=== PATIENT | female | born 2005 | race Caucasian/White ===

== ENCOUNTER 2025-09-24 18:32 | Emergency (ER) | payer SELFPAY ==
[2025-09-24 18:32] VITALS: BMI 21.5
[2025-09-24 18:34] VITALS: BP 114/78
--- NOTE | 2025-09-24 19:13 | ED.GENMED ---
History of Present Illness
General
Chief Complaint: Rabies
Source: patient
Exam Limitations: none
Time Seen by Provider: 09/24/25 19:03
Nursing documentation reviewed up to this point in time: agreed with
History of Present Illness
History of Present Illness:
20-year-old female presenting to the emergency department today after being bit by a barn cat. She works at a vet clinic. The cat is not vaccinated she denies any history of vaccination. Her last tetanus shot was a few years ago. She claims that
she cleaned the area immediately and irrigated the superficial wound.
Review of Systems
Review of Systems
Allergies reviewed?: Yes
All Other Systems: ROS reviewed and negative except as documented in HPI and ROS
Phy Exam
Physical Exam
Physical Exam:
GENERAL: Alert , in no apparent distress
EYE: pupils equal and reactive
NECK: Supple, no significant adenopathy.
ENT: o/p clr, mmm.
CARDIAC: Regular rate and rhythm .
LUNGS: Clear breath sounds bilaterally, no acute respiratory distress, no wheezes/rales/rhonchi
ABDOMEN: Soft, without focal tenderness, no r/g, no cvat
NEUROLOGICAL: Alert and oriented, no focal neuro deficits
SKIN: Very superficial cut to the right palm are fourth MCP. Warm and dry, skin intact.
MUSCULOSKELETAL: No edema, well perfused.
PSYCH: Normal and appropriate interaction.
Course
Orders/Labs/Results
Orders:
Orders
09/24/25 19:13
Amoxicillin 875 mg/Clav 125 mg [Augmentin 875 mg/125 mg] 1 tablet PO NOW STA
Rabies Immune Globulin/Pf [HyperRAB] 1,243 unit IM NOW STA
Rabies Vaccine (Pcec)/Pf [Rabavert Rabies Vacc W-Diluent] 2.5 unit IM .ONCE ONE
Vital Signs
Initial and Last Documented VS:
Initial Vital Signs
Temp Pulse Resp BP Pulse Ox
98.2 F 74 16 114/78 99
09/24/25 18:34 09/24/25 18:34 09/24/25 18:34 09/24/25 18:34 09/24/25 18:34
Last Documented Vital Signs
Temp Pulse Resp BP Pulse Ox
98.2 F 74 16 114/78 99
09/24/25 18:34 09/24/25 18:34 09/24/25 18:34 09/24/25 18:34 09/24/25 18:34
MDM/Problems Addressed
MDM/Problems Addressed:
20-year-old female presenting to the emergency department after being bit by a kitten that apparently does live outdoor not vaccinated there was acting strange today. Concerning this patient is seeking rabies vaccination. Additionally started on
antibiotics. Was given immunoglobulin as well as the vaccine and given a prescription for subsequent series. Return precautions given.
*Pulse Oximetry
SaO2: 99
Oxygen Mode of Delivery: Room air
Patient hypoxic: no (99)
*Critical Care Note
Total Time (30-74mins, 75-104mins- exclusive of procedures): Not Applicable
ED Attending Note
-
Portions of this chart may have been created with voice recognition software.� Occasional wrong word or��sound alike� substitutions may have occurred due to the inherent limitations of voice recognition software.
Discharge Plan
Departure
Patient Disposition: Home (Routine Discharge)
Date of Disposition: 09/24/25
Time of Disposition: 19:17
Patient with high blood pressure during this ER visit?: No
Condition: Good
Covid-19: Not Applicable
Discharge Problem:
Cat bite
Instructions: Rabies
Prescriptions:
New
RabAvert (PF) 2.5 unit Suspension For Reconstitution
1 ml IM . DIRECTED Qty: 3 0RF
Rx Instructions:
See Rabies Vaccine Post Exposure Prophylaxis Instruction Sheet for Dosing Instructions
amoxicillin-pot clavulanate 875-125 mg tablet
1 tab PO BID 3 Days Qty: 6 0RF
Stand Alone Forms: Rabies Vaccine Post Exp Dosing
Activity Restrictions/Additional Instructions:
You came to the emergency department today with concerns of a cat bite. Please take the prescribed Augmentin keep the area clean and follow-up for subsequent rabies vaccination. Return for any worsening, new or concerning symptoms.
Interventions
Interventions:
*Risk Screen - Suicide Last Done: 09/24/25 18:34
*General Assessment Last Done: 09/24/25 19:02
*Neglect/Abuse Screening Last Done: 09/24/25 18:34
*ED- Fall Risk Assessment Last Done: 09/24/25 19:02
*ED COVID-19 Vaccine History Last Done: 09/24/25 19:02
*ED Influenza Vaccine History Last Done: 09/24/25 19:02
Discharge Date and Time
Print Language: TELUGU
[2025-09-24] MEDS: AUGMENTIN 875 MG/125 MG 1 TABLET PO (19:25)
[2025-09-24] MEDS: RABAVERT RABIES VACC W-DILUENT 2.5 UNIT IM (19:47)
== END 2025-09-24 20:08 | disposition home or self-care (01) ==
LOC: EMR 18:32
PROVIDERS: EMERGENCY PHYSICIAN Emergency Medicine; FAMILY PHYSICIAN Family Medicine
DX: S60.571A Other superficial bite of hand of right hand, initial encounter (principal); W55.01XA Bitten by cat, initial encounter; Y92.89 Other specified places as the place of occurrence of the external cause; Y99.0 Civilian activity done for income or pay; Z23 Encounter for immunization; Z29.14 Encounter for prophylactic rabies immune globulin
CPT/HCPCS: 90471; 96372; 99284; 90375; 90675

== ENCOUNTER 2025-10-07 15:08 | Outpatient (RCR) | payer SELFPAY ==
[2025-09-27 15:27] VITALS: BP 106/82
[2025-09-27] MEDS: RABAVERT RABIES VACC W-DILUENT 2.5 UNIT IM (15:43)
[2025-09-30 15:14] VITALS: BP 108/69
[2025-09-30] MEDS: RABAVERT RABIES VACC W-DILUENT 2.5 UNIT IM (15:21)
[2025-10-07 15:15] VITALS: BP 103/76
[2025-10-07] MEDS: RABAVERT RABIES VACC W-DILUENT 2.5 UNIT IM (15:19)
== END 2025-10-10 08:28 | disposition home or self-care (01) ==
LOC: OID 15:08
PROVIDERS: ATTENDING PHYSICIAN Emergency Medicine
DX: Z20.3 Contact with and (suspected) exposure to rabies (principal); Z23 Encounter for immunization
CPT/HCPCS: 90471; 90675